=== PATIENT | male | born 1930 | race Caucasian/White ===

== ENCOUNTER 2016-04-07 12:18 | Outpatient (CLI) | payer MEDICARE, OTHER | END 2016-04-07 12:20 | LOC: LAB 12:18 | PROVIDERS: ATTEND Internal Medicine Cardiovascular Disease | DX: Z51.81 Encounter for therapeutic drug level monitoring (principal); Z79.01 Long term (current) use of anticoagulants; Z95.2 Presence of prosthetic heart valve | CPT/HCPCS: 36415; 85610 ==

== ENCOUNTER 2016-04-27 14:42 | Outpatient (CLI) | payer MEDICARE, OTHER | END 2016-04-27 14:50 | LOC: LAB 14:42 | PROVIDERS: ATTEND Internal Medicine Cardiovascular Disease | DX: Z51.81 Encounter for therapeutic drug level monitoring (principal); Z79.01 Long term (current) use of anticoagulants; Z95.2 Presence of prosthetic heart valve | CPT/HCPCS: 36415; 85610 ==

== ENCOUNTER 2016-05-17 14:37 | Outpatient (CLI) | payer MEDICARE, OTHER | END 2016-05-17 14:40 | LOC: LAB 14:37 | PROVIDERS: ATTEND Internal Medicine Cardiovascular Disease | DX: Z51.81 Encounter for therapeutic drug level monitoring (principal); Z79.01 Long term (current) use of anticoagulants; Z95.2 Presence of prosthetic heart valve | CPT/HCPCS: 36415; 85610 ==

== ENCOUNTER 2016-07-07 11:03 | Outpatient (CLI) | payer MEDICARE, OTHER | END 2016-07-07 11:04 | LOC: LAB 11:03 | PROVIDERS: ATTEND Internal Medicine Cardiovascular Disease | DX: Z51.81 Encounter for therapeutic drug level monitoring (principal); Z79.01 Long term (current) use of anticoagulants; Z95.2 Presence of prosthetic heart valve | CPT/HCPCS: 36415; 85610 ==

== ENCOUNTER 2016-08-06 11:14 | Outpatient (CLI) | payer MEDICARE, OTHER | END 2016-08-06 11:15 | LOC: CARD 11:14 | PROVIDERS: ATTEND Nurse Practitioner | DX: E78.5 Hyperlipidemia, unspecified (principal); I10 Essential (primary) hypertension; I25.10 Atherosclerotic heart disease of native coronary artery without angina pectoris; I35.0 Nonrheumatic aortic (valve) stenosis; R06.02 Shortness of breath; Z95.2 Presence of prosthetic heart valve | CPT/HCPCS: 93005; G0463 ==

== ENCOUNTER 2016-08-06 12:57 | Outpatient (CLI) | payer MEDICARE, OTHER | END 2016-08-06 13:00 | LOC: LAB 12:57 | PROVIDERS: ATTEND Internal Medicine Cardiovascular Disease | DX: Z51.81 Encounter for therapeutic drug level monitoring (principal); Z79.01 Long term (current) use of anticoagulants; Z95.2 Presence of prosthetic heart valve | CPT/HCPCS: 36415; 85610 ==

== ENCOUNTER 2016-08-25 15:32 | Outpatient (CLI) | payer MEDICARE, OTHER | END 2016-08-25 15:33 | LOC: LAB 15:32 | PROVIDERS: ATTEND Internal Medicine Cardiovascular Disease | DX: Z95.2 Presence of prosthetic heart valve (principal) | CPT/HCPCS: 36415; 85610 ==

== ENCOUNTER 2016-10-26 07:46 | Outpatient (CLI) | payer MEDICARE, OTHER | END 2016-10-26 07:47 | LOC: LAB 07:46 | PROVIDERS: ATTEND Internal Medicine Cardiovascular Disease | DX: Z95.2 Presence of prosthetic heart valve (principal) | CPT/HCPCS: 36415; 85610 ==

== ENCOUNTER 2016-12-21 10:37 | Outpatient (CLI) | payer MEDICARE, OTHER | END 2016-12-21 10:40 | LOC: LAB 10:37 | PROVIDERS: ATTEND Internal Medicine Cardiovascular Disease | DX: Z95.2 Presence of prosthetic heart valve (principal) | CPT/HCPCS: 36415; 85610 ==

== ENCOUNTER 2017-01-06 11:59 | Outpatient (CLI) | payer MEDICARE, OTHER | END 2017-01-06 12:00 | LOC: LAB 11:59 | PROVIDERS: ATTEND Internal Medicine Cardiovascular Disease | DX: Z95.2 Presence of prosthetic heart valve (principal) | CPT/HCPCS: 36415; 85610 ==

== ENCOUNTER 2017-02-08 10:41 | Outpatient (CLI) | payer MEDICARE, OTHER | END 2017-02-08 10:42 | LOC: LAB 10:41 | PROVIDERS: ATTEND Internal Medicine Cardiovascular Disease | DX: Z79.01 Long term (current) use of anticoagulants (principal) | CPT/HCPCS: 36415; 85610 ==

== ENCOUNTER 2017-03-03 10:48 | Outpatient (CLI) | payer MEDICARE, OTHER | END 2017-03-03 10:50 | LOC: LAB 10:48 | PROVIDERS: ATTEND Internal Medicine Cardiovascular Disease | DX: Z79.01 Long term (current) use of anticoagulants (principal) | CPT/HCPCS: 36415; 85610 ==

== ENCOUNTER 2017-03-23 09:12 | Outpatient (CLI) | payer MEDICARE, OTHER | END 2017-03-23 09:13 | LOC: LAB 09:12 | PROVIDERS: ATTEND Internal Medicine Cardiovascular Disease | DX: Z79.01 Long term (current) use of anticoagulants (principal) | CPT/HCPCS: 36415; 85610 ==

== ENCOUNTER 2017-04-11 12:51 | Outpatient (CLI) | payer MEDICARE, OTHER | END 2017-04-11 12:52 | LOC: LAB 12:51 | PROVIDERS: ATTEND Internal Medicine Cardiovascular Disease | DX: Z79.01 Long term (current) use of anticoagulants (principal) | CPT/HCPCS: 36415; 85610 ==

== ENCOUNTER 2017-05-06 08:08 | Outpatient (CLI) | payer MEDICARE, OTHER | END 2017-05-06 08:10 | LOC: LAB 08:08 | PROVIDERS: ATTEND Internal Medicine Cardiovascular Disease | DX: Z79.01 Long term (current) use of anticoagulants (principal) | CPT/HCPCS: 36415; 85610 ==

== ENCOUNTER 2017-06-02 10:54 | Outpatient (CLI) | payer MEDICARE, OTHER | END 2017-06-02 10:55 | LOC: LAB 10:54 | PROVIDERS: ATTEND Internal Medicine Cardiovascular Disease | DX: Z79.01 Long term (current) use of anticoagulants (principal) | CPT/HCPCS: 36415; 85610 ==

== ENCOUNTER 2017-06-21 11:01 | Outpatient (CLI) | payer MEDICARE, OTHER | END 2017-06-21 11:03 | LOC: LAB 11:01 | PROVIDERS: ATTEND Internal Medicine Cardiovascular Disease | DX: Z79.01 Long term (current) use of anticoagulants (principal) | CPT/HCPCS: 36415; 85610 ==

== ENCOUNTER 2017-07-12 08:14 | Outpatient (CLI) | payer MEDICARE, OTHER | END 2017-07-12 08:15 | LOC: LAB 08:14 | PROVIDERS: ATTEND Internal Medicine Cardiovascular Disease | DX: Z79.01 Long term (current) use of anticoagulants (principal) | CPT/HCPCS: 36415; 85610 ==

== ENCOUNTER 2017-07-27 08:59 | Outpatient (CLI) | payer MEDICARE, OTHER | END 2017-07-27 09:00 | LOC: LAB 08:59 | PROVIDERS: ATTEND Internal Medicine Cardiovascular Disease | DX: Z79.01 Long term (current) use of anticoagulants (principal) | CPT/HCPCS: 36415; 85610 ==

== ENCOUNTER 2017-08-18 07:46 | Outpatient (CLI) | payer MEDICARE, OTHER | END 2017-08-18 07:48 | LOC: LAB 07:46 | PROVIDERS: ATTEND Internal Medicine Cardiovascular Disease | DX: Z79.01 Long term (current) use of anticoagulants (principal) | CPT/HCPCS: 36415; 85610 ==

== ENCOUNTER 2017-09-16 08:08 | Outpatient (CLI) | payer MEDICARE, OTHER | END 2017-09-16 09:07 | LOC: LAB 08:08 | PROVIDERS: ATTEND Internal Medicine Cardiovascular Disease | DX: Z79.01 Long term (current) use of anticoagulants (principal) | CPT/HCPCS: 36415; 85610 ==

== ENCOUNTER 2017-09-29 08:22 | Outpatient (CLI) | payer MEDICARE, OTHER | END 2017-09-29 08:23 | LOC: LAB 08:22 | PROVIDERS: ATTEND Internal Medicine Cardiovascular Disease | DX: Z79.01 Long term (current) use of anticoagulants (principal) | CPT/HCPCS: 36415; 85610 ==

== ENCOUNTER 2017-10-18 08:02 | Outpatient (CLI) | payer MEDICARE, OTHER | END 2017-10-18 08:07 | LOC: LAB 08:02 | PROVIDERS: ATTEND Internal Medicine Cardiovascular Disease | DX: Z79.01 Long term (current) use of anticoagulants (principal) | CPT/HCPCS: 36415; 85610 ==

== ENCOUNTER 2017-11-16 09:00 | Outpatient (CLI) | payer MEDICARE, OTHER | END 2017-11-16 09:02 | LOC: LAB 09:00 | PROVIDERS: ATTEND Internal Medicine Cardiovascular Disease | DX: Z79.01 Long term (current) use of anticoagulants (principal) | CPT/HCPCS: 36415; 85610 ==

== ENCOUNTER 2017-12-16 08:15 | Outpatient (CLI) | payer MEDICARE, OTHER | END 2017-12-16 08:16 | LOC: LAB 08:15 | PROVIDERS: ATTEND Internal Medicine Cardiovascular Disease | DX: Z79.01 Long term (current) use of anticoagulants (principal) | CPT/HCPCS: 36415; 85610 ==

== ENCOUNTER 2018-01-13 09:47 | Outpatient (CLI) | payer MEDICARE, OTHER | END 2018-01-13 09:50 | LOC: LAB 09:47 | PROVIDERS: ATTEND Internal Medicine Cardiovascular Disease | DX: Z79.01 Long term (current) use of anticoagulants (principal) | CPT/HCPCS: 36415; 85610 ==